=== PATIENT | female | born 1995 | race Caucasian/White ===

== ENCOUNTER 2016-08-02 17:26 | Emergency (ER) | payer OTHER ==
[2016-08-02 17:31] VITALS: BP 123/80; PULSE 89; TEMP 98.5; BMI 25.7
--- NOTE | 2016-08-02 18:23 | PDOC ---
History of Present Illness - General Chief Complaint: Abscess Boil Stated Complaint: ABSCESS BOIL Time Seen by Provider: 08/02/16 17:51 History Source: Patient Exam Limitations: No Limitations - History of Present Illness Initial Comments: 08/02/16 18:18 21-year-old female presents the ED with redness and a bump to her left nipples for the past few days. Denies fever, discharge but states mild discomfort around the earring that she's had for approximately 3 years. Patient denies nipple discharge, history of cysts of the breast, or family history of breast cancer. Mother also denies the above. Patient denies fever, chills or radiation of pain, or previous abscess to other parts of her body. Timing/Duration: other (3 days) Severity: mild Associated Symptoms: reports: denies symptoms Past History - Past Medical History Allergies/Adverse Reactions: Allergies Allergy/AdvReac Type Severity Reaction Status Date / Time No Known Allergies Allergy Verified 08/02/16 17:29 Home Medications: Ambulatory Orders NK [No Known Home Medication] 11/02/13 - Reproductive History LMP Normal: Yes Is Patient Now?: No - Immunization History Immunization Up to Date: Yes - Psycho/Social/Smoking Cessation Hx Anxiety: No Suicidal Ideation: No Smoking History: Never smoked Have you smoked in the past 12 months: No Information on smoking cessation initiated: No Hx Alcohol Use: No Drug/Substance Use Hx: No Substance Use Type: None Patient Lives Alone: No Lives with/in: parents Review of Systems - Review of Systems Able to Perform ROS?: Yes Constitutional: No: Symptoms Reported Musculoskeletal: No: Symptoms Reported Integumentary: Yes: Erythema, Lumps Neurological: No: Symptoms reported *Physical Exam - Vital Signs Last Vital Signs Temp Pulse Resp BP Pulse Ox 98.5 F 89 18 123/80 98 08/02/16 17:29 08/02/16 17:29 08/02/16 17:29 08/02/16 17:29 08/02/16 17:29 - Physical Exam General Appearance: Yes: Nourished, Appropriately Dressed. No: Apparent Distress Integumentary: positive: Erythema (noted semi-firm to by 2.5 cm mass abovethe nipple extending from 12 oclock to 3 oclock. noted mild increased warmth to area.), Other (Earring removed and noted indentation with irritation from the ball of the earring. Able to express minimal to none purulent drainage from the pierced site.) Neurologic: positive: Motor Strength 5/5 Medical Decision Making - Medical Decision Making 08/02/16 18:22 Patient with noted abscess to the left breast secondary to poor fitting nipple earring. Earring was removed and patient be discharged home with antibiotics including recommendations to apply hot soaks and follow-up with her PCP in 5-7 days. *DC/Admit/Observation/Transfer Diagnosis at time of Disposition: Breast abscess - Discharge Dispostion Disposition: HOME Condition at time of disposition: Good - Referrals Referrals: Lisa Sapp MD [Primary Care Provider] - - Patient Instructions Printed Discharge Instructions: DI for Skin Abscess Additional Instructions: Please apply hot soaks to the affected area 4 times a day for at least 15 minutes of constant heat. Please take antibiotics as prescribed until completed. Please follow-up with your PCP in 5-7 days for evaluation or return here sooner if area worsened.
== END 2016-08-02 18:42 | disposition home or self-care (01) ==
LOC: JERFT 17:26
DX: N61.1 Abscess of the breast and nipple (principal); M79.5 Residual foreign body in soft tissue; W45.8XXA Other foreign body or object entering through skin, initial encounter; Y93.89 Activity, other specified
CPT/HCPCS: 99281-25

== ENCOUNTER 2018-08-17 18:23 | Emergency (ER) | payer OTHER ==
[2018-08-17 18:41] VITALS: BP 106/66; PULSE 70; TEMP 98.3; BMI 23.9
--- NOTE | 2018-08-17 18:43 | PDOC ---
History of Present Illness - General Chief Complaint: Urinary Problem Stated Complaint: BLADDER PAIN Time Seen by Provider: 08/17/18 18:29 History Source: Patient Exam Limitations: No Limitations - History of Present Illness Travel History: No Initial Comments: 08/17/18 19:11 Its had onset of pain, burning, frequency and conservative urgency yesterday which is progressively worsen. Denies fever, denies nausea vomiting, vaginal drainage or discharge Timing/Duration: reports: getting worse Quality: reports: mild, moderate Abdominal Pain Onset Location: reports: suprapubic Alleviating Factors: improves with: None Past History - Travel Traveled outside of the country in the last 30 days: No Close contact w/someone who was outside of country & ill: No - Past Medical History Allergies/Adverse Reactions: Allergies Allergy/AdvReac Type Severity Reaction Status Date / Time No Known Allergies Allergy Verified 08/02/16 17:29 Home Medications: Ambulatory Orders Amox-Tr/K Cl [Augmentin - 875Mg Tablet] 1 tab PO BID #14 tablet 08/02/16 Phenazopyridine HCl [Pyridium -] 200 mg PO ONCE #10 tablet 08/17/18 Sulfamethoxazole/Trimethoprim [Bactrim *Ds*] 1 each PO BID #14 tablet 08/17/18 COPD: No - Immunization History Immunization Up to Date: Yes - Suicide/Smoking/Psychosocial Hx Smoking History: Never smoked Have you smoked in the past 12 months: No Hx Alcohol Use: No Drug/Substance Use Hx: No Substance Use Type: None Review of Systems - Review of Systems Able to Perform ROS?: Yes Is the patient limited Lithuanian proficient: Yes Constitutional: Yes: Symptoms Reported, See HPI, Malaise. No: Chills, Fever HEENTM: Yes: See HPI. No: Symptoms Reported Respiratory: Yes: Symptoms reported, See HPI. No: Cough ABD/GI: No: Symptoms Reported : Yes: Symptoms Reported, See HPI, Burning, Dysuria, Frequency, Urgency. No: Hematuria Integumentary: Yes: Symptoms Reported All Other Systems: Reviewed and Negative *Physical Exam - Vital Signs Last Vital Signs Temp Pulse Resp BP Pulse Ox 98.3 F 70 15 106/66 98 08/17/18 18:26 08/17/18 18:26 08/17/18 18:26 08/17/18 18:26 05/12/19 18:26 - Physical Exam General Appearance: Yes: Nourished, Appropriately Dressed HEENT: positive: JOSE, Normal ENT Inspection, TMs Normal, Pharynx Normal Neck: positive: Supple Respiratory/Chest: positive: Lungs Clear Gastrointestinal/Abdominal: positive: Soft. negative: Tender Extremity: positive: Normal Capillary Refill, Normal Inspection Integumentary: positive: Dry, Warm, Pale Neurologic: positive: scrum product owner II-XII NML intact, Fully Oriented, Alert, Normal Mood/ Affect Progress Note - Progress Note Progress Note: UTI, will treat with Bactrim and Pyridium *DC/Admit/Observation/Transfer Diagnosis at time of Disposition: UTI (urinary tract infection) Qualifiers: Urinary tract infection type: acute cystitis Hematuria presence: with hematuria Qualified Code(s): N30.01 - Acute cystitis with hematuria - Discharge Dispostion Disposition: HOME Condition at time of disposition: Stable Decision to Admit order: No - Prescriptions Prescriptions: Phenazopyridine HCl [Pyridium -] 200 mg PO ONCE #10 tablet Sulfamethoxazole/Trimethoprim [Bactrim *Ds*] 1 each PO BID #14 tablet - Referrals - Patient Instructions Printed Discharge Instructions: DI for Urinary Tract Infection (UTI) Additional Instructions: Rest, drink lots of fluids: Teas, water, soups Avoid contact with others until fevers and symptoms resolved Lots of handwashing and good hygiene Continue [id number] medications for symptomatic relief Tylenol or Motrin for fever and pain Continue all of antibiotics until completed Followup with private physician in one week for repeat urinalysis/reevaluation Return to emergency department for worsened symptoms, fevers, dehydration - Post Discharge Activity Forms/Work/School Notes: Back to Work
[2018-08-17 18:54] LABS: EPI CELLS 2.4 /HPF (0-5/HPF); PH,URINE 5.5 (5.0-8.0); URINE APPEARANCE CLEAR; URINE BACTERIA 89.2 /hpf (NEGATIVE); URINE BILIRUBIN NEGATIVE (NEGATIVE); URINE CASTS 3 /lpf (0-8); URINE COLOR YELLOW; URINE GLUCOSE (UA) NEGATIVE (NEGATIVE); URINE KETONE NEGATIVE (NEGATIVE); URINE LEUK ESTERASE 2+ (NEGATIVE); URINE NITRITE NEGATIVE (NEGATIVE); URINE PROTEIN NEGATIVE (NEGATIVE); URINE RBC 105 /hpf (0-4); URINE UROBILINOGEN 0.2 mg/dL (0.2-1.0); URINE WBC 55 /hpf (0-5)
[2018-08-17 19:18] LABS: HCG,QUALITATIVE URINE Negative
== END 2018-08-17 19:26 | disposition home or self-care (01) ==
LOC: JERFT 18:23 → JER 18:23 → JERFT 19:26
DX: N30.01 Acute cystitis with hematuria (principal)
CPT/HCPCS: 81003; 84703; 87086; 87186; 99281-25

== ENCOUNTER 2018-08-26 03:31 | Emergency (ER) | payer OTHER ==
--- NOTE | 2018-08-26 04:06 | PDOC ---
History of Present Illness - General Chief Complaint: Pain Stated Complaint: ABD PAIN Time Seen by Provider: 08/26/18 04:05 History Source: Patient - History of Present Illness Initial Comments: 08/26/18 04:50 The patient is a 23 year old female who presents with acute onset of abdominal pain yesterday around 9 a.m. Pain is constant, punching diffuse and most severe in her epigastrium. No associated nausea/vomiting, fevers/chills, symptoms. LMP was two days previous. NKDA Surgical: none reported Social: denies toxic habits PMD: Dr. Senait Etienne Past History - Past Medical History Allergies/Adverse Reactions: Allergies Allergy/AdvReac Type Severity Reaction Status Date / Time No Known Allergies Allergy Verified 08/26/18 04:10 Home Medications: Ambulatory Orders NK [No Known Home Medication] 08/26/18 COPD: No - Immunization History Immunization Up to Date: Yes - Suicide/Smoking/Psychosocial Hx Smoking History: Never smoked Have you smoked in the past 12 months: No Hx Alcohol Use: No Drug/Substance Use Hx: No Substance Use Type: None Review of Systems - Review of Systems Constitutional: No: Chills, Fever HEENTM: No: Blurred Vision, Recent change in vision Respiratory: No: Cough, Shortness of Breath Cardiac (ROS): No: Chest Pain, Lightheadedness, Palpitations, Syncope ABD/GI: Yes: Abdominal cramping. No: Constipated, Diarrhea, Nausea, Vomiting : No: Burning, Dysuria *Physical Exam - Physical Exam Comments: 08/26/18 06:29 Awake, well appearing Abdomen: soft, epigastric TTP w/peritoneal sign (rebound) CV: S1, S2 no M/R/G Respiratory: CLTA B/L no wheeze/crackle Extremity: 2+ DP pulses, no edema Neuro: A&O x3, CN II-XII ED Treatment Course - LABORATORY CBC & Chemistry Diagram: 08/26/18 04:22 08/26/18 04:22 Medical Decision Making - Medical Decision Making 08/26/18 04:59 Leigha Pedroza is a well appearing 23 year old female with acute onset of abdominal pain. VS unremarkable w/peritoneal sign/focal RUQ/epigastric tenderness on belly exam. Frontal diagnosis includes cholecystitis vs. early appendicitis vs. gastritis, also consider cystitis, pyelonephritis, less likely /ectopic . Belly labs, IV hydration, Tylenol for pain control. CTAP. Reassess. 08/26/18 05:11 UA clean Urine negative No leukocytosis CMP pending 08/26/18 06:26 Tranaminitis w/elevated bilirubin more likely cholecystitis/biliary colic > early appy CMP otherwise unremarkable Lipase negative 08/26/18 06:42 Patient reassessed @ bedside, mild symptomatic improvement with analgesia, persistent epigastric/RUQ TTP. CTAP pending 08/26/18 07:07 Patient signed out to Dr. Sher (Resident) and Dr. Cano (Attending) for further management. Patient will likely require GB US given focal RUQ/ epigastric tenderness and further analgesia. *DC/Admit/Observation/Transfer Diagnosis at time of Disposition: Abdominal pain - Discharge Dispostion Condition at time of disposition: Fair - Referrals Referrals: Lisa Sapp MD [Primary Care Provider] - - Patient Instructions - Post Discharge Activity
[2018-08-26 04:09] VITALS: TEMP 98.1; BMI 23.9
[2018-08-26] MEDS ORDERED: SODIUM CHLORIDE 0.9% 500 ML INFUS.BAG IV ONE (04:24)
[2018-08-26] MEDS ORDERED: ACETAMINOPHEN 1000 MG/100 ML VIAL (NON FORMULARY) IVPB ONE (04:25)
[2018-08-26] MEDS ORDERED: ACETAMINOPHEN INJECTION 100 ML IVPB ONE (04:31)
[2018-08-26 04:37] LABS: BASO % 0.2 % (0-2.0); EOS % 2.4 % (0-4.5); HEMATOCRIT 38.4 % (32.4-45.2); HEMOGLOBIN 12.5 GM/dL (10.7-15.3); LYMPH % 11.9 % (8-40); MCH 27.9 pg (25.7-33.7); MCHC 32.6 g/dl (32.0-36.0); MEAN CELL VOLUME 85.4 fl (80-96); MEAN PLT VOLUME 10.1 fl (7.5-11.1); MONO % 7.6 % (3.8-10.2); NEUT % 77.9 % (42.8-82.8); PLATELET COUNT 167 K/MM3 (134-434); WHITE BLOOD COUNT 7.9 K/mm3 (4.0-10.0)
[2018-08-26 04:41] LABS: PH,URINE 6.5 (5.0-8.0); URINE APPEARANCE CLEAR; URINE BILIRUBIN NEGATIVE (NEGATIVE); URINE COLOR YELLOW; URINE GLUCOSE (UA) NEGATIVE (NEGATIVE); URINE KETONE NEGATIVE (NEGATIVE); URINE LEUK ESTERASE NEGATIVE (NEGATIVE); URINE NITRITE NEGATIVE (NEGATIVE); URINE PROTEIN NEGATIVE (NEGATIVE)
[2018-08-26 05:13] LABS: ALBUMIN 4.4 g/dl (3.4-5.0); ALK PHOS 88 U/L (45-117); ANION GAP 7 MMOL/L (8-16); BILIRUBIN,TOTAL 1.3 mg/dL (0.2-1); BLOOD UREA NITROGEN 9 mg/dL (7-18); CALCIUM 8.8 mg/dL (8.5-10.1); CHLORIDE 105 mmol/L (98-107); CO2 25 mmol/L (21-32); CREATININE 0.8 mg/dL (0.55-1.3); GLUCOSE,RANDOM 85 mg/dL (74-106); LIPASE 285 U/L (73-393); POTASSIUM 3.6 mmol/L (3.5-5.1); SGOT/AST 175 U/L (15-37); SGPT/ALT 209 U/L (13-61); SODIUM 137 mmol/L (136-145); TOT PROT 7.4 g/dl (6.4-8.2)
--- NOTE | 2018-08-26 06:40 | PDOC ---
Attending Attestation - Resident Resident Name: Dixie Dumas - ED Attending Attestation I have performed the following: I have examined & evaluated the patient, The case was reviewed & discussed with the resident, I agree w/resident's findings & plan - HPI HPI: 08/26/18 06:38 23-year-old female with right upper quadrant sharp abdominal pain. - Physicial Exam PE: 08/26/18 06:39 agree with residents exam - Medical Decision Making 08/26/18 06:39 23-year-old female with upper abdominal pain CT scan of the abdomen and pelvis is pending Plan to sign out case to day shift for final disposition
--- NOTE | 2018-08-26 07:20 | PDOC ---
*Physical Exam - Vital Signs Last Vital Signs Temp Pulse Resp BP Pulse Ox 98.1 F 89 20 100/72 99 08/26/18 03:31 08/26/18 03:31 08/26/18 03:31 08/26/18 03:31 08/26/18 03:31 - Physical Exam General Appearance: Yes: Appropriately Dressed. No: Apparent Distress HEENT: positive: Normal Voice Respiratory/Chest: negative: Respiratory Distress, Accessory Muscle Use Gastrointestinal/Abdominal: positive: Tender (Epigastric Region without rebound or guarding. ), Flat, Soft. negative: Hernia, Mass Integumentary: positive: Normal Color Neurologic: positive: Fully Oriented, Alert, Normal Mood/Affect Vital Signs - Vital Signs #1 Blood Pressure: 110/75 MAP: 86 BP Location: Left Arm Blood Pressure Position: Sitting Pulse Rate: 78 Respiratory Rate: 16 O2 Sat by Pulse Oximetry (%): 97 Oxygen Delivery Method: Room Air ED Treatment Course - LABORATORY CBC & Chemistry Diagram: 08/26/18 04:22 08/26/18 04:22 - ADDITIONAL ORDERS Additional order review: Laboratory Results 08/26/18 08/26/18 08/26/18 04:22 04:22 04:22 Sodium 137 Potassium 3.6 Chloride 105 Carbon Dioxide 25 Anion Gap 7 L BUN 9 Creatinine 0.8 Est GFR (CKD-EPI)AfAm 118.76 Est GFR (CKD-EPI)NonAf 102.47 Random Glucose 85 Calcium 8.8 Total Bilirubin 1.3 H AST 175 H ALT 209 H Alkaline Phosphatase 88 Total Protein 7.4 Albumin 4.4 Lipase 285 Urine Color Yellow Urine Appearance Clear Urine pH 6.5 Ur Specific [place] 1.010 Urine Protein Negative Urine Glucose (UA) Negative Urine Ketones Negative Urine Blood Negative Urine Nitrite Negative Urine Bilirubin Negative Urine Urobilinogen 1.0 Ur Leukocyte Esterase Negative Urine HCG, Qual Blood Type A POSITIVE Antibody Screen Negative 08/26/18 04:21 Sodium Potassium Chloride Carbon Dioxide Anion Gap BUN Creatinine Est GFR (CKD-EPI)AfAm Est GFR (CKD-EPI)NonAf Random Glucose Calcium Total Bilirubin AST ALT Alkaline Phosphatase Total Protein Albumin Lipase Urine Color Urine Appearance Urine pH Ur Specific [place] Urine Protein Urine Glucose (UA) Urine Ketones Urine Blood Urine Nitrite Urine Bilirubin Urine Urobilinogen Ur Leukocyte Esterase Urine HCG, Qual Negative Blood Type Antibody Screen 08/26/18 04:22 RBC 4.50 MCV 85.4 MCHC 32.6 RDW 13.0 MPV 10.1 Neutrophils % 77.9 Lymphocytes % 11.9 Monocytes % 7.6 Eosinophils % 2.4 Basophils % 0.2 - RADIOLOGY Radiograph Interpretation: CT Abdomen and Pelvis w/ Contrast: THIS IS A PRELIMINARY REPORT FROM [facility] DATE OF SERVICE: 2018-08-26 06:39:52 IMAGES: [id number] EXAM: CT ABDOMEN AND PELVIS WITH CONTRAST No bowel obstruction, colitis, free fluid or free air. Normal appendix. Unremarkable pancreas, kidneys and gallbladder. 1.3 cm dominant follicle left ovary. One or more of the following dose reduction techniques were used: automated exposure control, adjustment of the mA and/or kV according to patient size, use of iterative reconstructive technique. THIS DOCUMENT HAS BEEN ELECTRONICALLY SIGNED Natalia Alcaraz M.D. 08/26/2018 07:02 EST - Medications Given in the ED: ED Medications Discontinued Medications Generic Name Dose Route Start Last Admin Trade Name Freq PRN Reason Stop Dose Admin Acetaminophen 1,000 mg 08/26/18 04:25 08/26/18 04:35 Ofirmev Injection - IVPB 08/26/18 04:26 1,000 mg ONCE ONE Administration Sodium Chloride 1,000 ml 08/26/18 04:24 08/26/18 04:25 Normal Saline - IV 08/26/18 04:25 1,000 ml ONCE ONE Administration Medical Decision Making - Medical Decision Making 08/26/18 07:00 Received sign out from resident Dr. Orellana. In short, pt is a previously healthy 23 y/o female presenting with RUQ vs epigastric tenderness since yesterday morning. Started after eating breakfast. Constant pain that persisted throughout the day. Became worse after laying down to sleep at approx. 3am. Of note, was evaluated at this department last week and diagnosed with a UTI. Pt reports completing the prescribed antibiotic course. Also of note , the pt reports taking approx. 2-4 *DC/Admit/Observation/Transfer Diagnosis at time of Disposition: Abdominal pain Qualifiers: Abdominal location: epigastric Qualified Code(s): R10.13 - Epigastric pain - Discharge Dispostion Disposition: HOME Condition at time of disposition: Good Decision to Admit order: No - Prescriptions Prescriptions: Omeprazole 20 mg PO DAILY 14 Days #14 tablet. Ranitidine [Zantac -] 150 mg PO BID PRN #20 tablet PRN Reason: Stomach Pain - Referrals Referrals: Lisa Sapp MD [Primary Care Provider] - Ander Guerra MD [Staff Physician] - - Patient Instructions Printed Discharge Instructions: DI for Gastritis Additional Instructions: You were seen today for upper abdominal pain. Your CT scan and ultrasound were normal. Your blood work showed a slight elevation in your liver enzymes. The reason for this is not clear but is not likely to be an emergency. Your pain is likely gastritis from taking Ibuprofen 2-4 times a day. You should stop taking it as frequently. Try taking over the counter Tylenol (Acetaminophen) for your headaches. I have sent two prescriptions to your pharmacy. Take as directed on the package. Be aware, these medications may be cheaper over the counter. Check with the pharmacist. You should follow up with a accelerator technician (stomach doctor). I have placed a referral for you to see Dr. Guerra. You will need to call to make an appointment. The number is included in this packet. A copy of todays results are attached to this packet. Take it to the appointment so your doctor can review them. You can also follow up with your primary care provider. Go to the nearest emergency department if your condition worsens or you feel like you need additional emergency evaluation. Print Language: MAORI - Post Discharge Activity Forms/Work/School Notes: Back to Work
[2018-08-26] MEDS ORDERED: IBUPROFEN 600 MG TABLET (FP) PO ONE (08:33)
[2018-08-26] MEDS ORDERED: MAG HYDROX/AL HYDROX/SIMETH 30 ML UNIT-DOSE CUP PO ONE (08:39)
[2018-08-26] MEDS ORDERED: FAMOTIDINE 20 MG/50 ML IVPB 20 MG/50 ML MG IVPB ONE ×2 (08:39→08:47)
[2018-08-26] MEDS ORDERED: MAG HYDROX/AL HYDROX/SIMETH 30 ML UNIT-DOSE CUP ONE (08:47)
[2018-08-26] MEDS ORDERED: LIDOCAINE VISCOUS 2% ORAL/TOP 100 ML BOTTLE MM ONE (11:54)
[2018-08-26] MEDS ORDERED: LIDOCAINE VISCOUS 2% ORAL/TOP 20 ML UNIT-DOSE CUP ONE (12:10)
[2018-08-26 12:46] VITALS: BP 110/72; PULSE 70
== END 2018-08-26 12:46 | disposition home or self-care (01) ==
LOC: JER 03:31
PROC: 3E033GC Introduction of Other Therapeutic Substance into Peripheral Vein, Percutaneous Approach (ICD-10-PCS; principal; 2018-08-26)
DX: R10.13 Epigastric pain (principal)
CPT/HCPCS: 36415; 74177-TC; 76705-TC; 80053; 80307; 81003; 83690; 84703; 85025; 86850; 86900; 86901; 87086; 96365; 99282-25; J0131

== ENCOUNTER 2019-12-27 10:40 | Emergency (ER) | payer OTHER ==
[2019-12-27 10:53] VITALS: BMI 28.3
--- OUTSIDE RECORDS SUMMARY | 2019-12-27 10:57 | XMS ---
:1995 Author Organization [facility] Support Name Relationship Address Phone [facility] Unavailable [address] [phone] [place] [address] [facility] Unavailable [address] [place] [address] LEXI CARLSON MOTHER [address] [place] [address] DIMA CARLSON Mother [address] [place] [address] Re-disclosure Warning The records that you are about to access may contain information from federally- assisted alcohol or drug abuse programs. If such information is present, then the following federally mandated warning applies: This information has been disclosed to you from records protected by federal confidentiality rules (42 CFR part 2). The federal rules prohibit you from making any further disclosure of this information unless further disclosure is expressly permitted by the written consent of the person to whom it pertains or as otherwise permitted by 42 CFR part 2. A general authorization for the release of medical or other information is NOT sufficient for this purpose. The Federal rules restrict any use of the information to criminally investigate or prosecute any alcohol or drug abuse patient.The records that you are about to access may contain highly sensitive health information, the redisclosure of which is protected by Article 27-F of the [facility] Public Health law. If you continue you may haveaccess to information: Regarding HIV / AIDS; Provided by facilities licensed or operated by the [facility] Office of Mental Health; or Provided by the [facility] Office for People With Developmental Disabilities. If such information is present, then the following [facility] mandated warning applies: This information has been disclosed to you from confidential records which are protected by state law. State law prohibits you from making any further disclosure of this information without the specific written consent of the person to whom it pertains, or as otherwise permitted by law. Any unauthorized further disclosure in violation of state law may result in a fine or shelter sentence or both. A general authorization for the release of medical or other information is NOT sufficient authorization for further disclosure. Allergies and Adverse Reactions Type Description Substance Reaction Status Data Source(s ) No Known No Known Allergies No Known eCW3 ( [place] [facility]) No Known No Known Allergies No Known eCW3 ( [place] [facility]) No Known No Known Allergies No Known eCW3 ( [place] [facility] Allergies [facility]) No Known No Known Allergies No Known eCW3 ( [place] [facility] Allergies [facility]) No Known No Known Allergies No Known eCW3 ( [place] [facility] Allergies [facility]) No Known No Known Allergies No known eCW3 ( [place] Allergies allergies [facility] ([facility]) Encounters Encounter Providers Location Date Indications Data Source(s ) Outpatient [facility] 01/29/2019 eCW3 ([facility] 12:00:00 AM Health Care) EDT - 01/29/2019 12:00:00 AM EDT Outpatient [facility] 12/18/2018 eCW3 ([facility] 12:00:00 AM Health Care) EDT - 12/18/2018 12:00:00 AM EDT Outpatient [facility] 12/12/2018 eCW3 ([facility] 12:00:00 AM Health Care) EDT - 12/12/2018 12:00:00 AM EDT Outpatient [facility] 09/17/2018 eCW3 ([facility] 12:00:00 AM Health Care) EDT - 09/17/2018 12:00:00 AM EDT Outpatient [facility] 08/27/2018 eCW3 ([facility] 12:00:00 AM Health Care) EDT - 08/27/2018 12:00:00 AM EDT Outpatient [facility] 05/29/2018 eCW3 ([facility] 12:00:00 AM Health Care) EST - 05/29/2018 12:00:00 AM EST Immunizations Vaccine Date Status Description Data Source(s) varicella 11/17/2015 completed eCW3 [facility] Hep A, adult 11/17/2015 completed eCW3 ([place] 10:02:00 AM [facility]) HPV, quadrivalent 08/18/2015 completed eCW3 ([place] 08:48:00 AM [facility]) HPV, quadrivalent 10/21/2014 completed eCW3 ([facility] [place] 01:54:00 PM [facility]) Hep A, ped/adol, 2 dose completed eCW3 ([facility]) HPV, quadrivalent completed [facility]) meningococcal MCV4P completed eCW3 ([facility]) varicella completed eCW3 ([facility]) Medications Medication Brand Start Product Dose Route Administrative Pharmacy at Indications Reaction Description Data Name Date Form Instructions Instructions Source(s) medroxyprog DEPO-P 03/04/ active DEPO-NV OVERA eCW3 esterone ROVERA 2020 150 mg/ml ([place] [facility] acetate 150 150 12:00: [place] MG/ML mg/ml 00 AM Health Injectable EST Care) Suspension [Depo-Prove ra] DEPO-GREEN PRIZE PACKER A 150 mg/ml medroxyprog DEPO-P 03/04/ active DEPO-NV OVERA eCW3 esterone ROVERA 2020 150 mg/ml ([place] acetate 150 150 12:00: [place] MG/ML mg/ml 00 AM Health Injectable EST Care) Suspension [Depo-Prove ra] DEPO-GREEN PRIZE PACKER A 150 mg/ml medroxyprog DEPO-P 03/04/ active DEPO-NV OVERA eCW3 esterone ROVERA 2020 150 mg/ml ([place] acetate 150 150 12:00: [place] MG/ML mg/ml 00 AM Health Injectable EST Care) Suspension [Depo-Prove ra] DEPO-GREEN PRIZE PACKER A 150 mg/ml medroxyprog DEPO-P 03/04/ active DEPO-NV OVERA eCW3 esterone ROVERA 2020 150 mg/ml ([place] acetate 150 150 12:00: [place] MG/ML mg/ml 00 AM Health Injectable EST Care) Suspension [Depo-Prove ra] DEPO-GREEN PRIZE PACKER A 150 mg/ml medroxyprog DEPO-P 03/04/ active DEPO-NV OVERA eCW3 esterone ROVERA 2020 150 mg/ml ([place] acetate 150 150 12:00: [place] MG/ML mg/ml 00 AM Health [facility] EST Care) Suspension [Depo-Prove ra] DEPO-GREEN PRIZE PACKER A 150 mg/ml Amoxicillin Amoxic .0 active Amoxici llin eCW3 500 MG Oral illin 2018 {caps 500 MG ([facility] Capsule 500 MG 12:00: ule} [place] 00 AM Health EST Care) Fluticasone Flutic .0 active Flutica sone eCW3 Propionate asone 2018 {spra Propionate ( [place] 50 MCG/ACT Propio 12:00: y_in_ 50 MCG/AC T [place] yuliya 00 AM each_ Health 50 EST nostr Care) MCG/AC il} T Amoxicillin Amoxic .0 active Amoxici llin eCW3 500 MG Oral illin 2018 {caps 500 MG ([place] [facility] Capsule 500 MG 12:00: ule} [place] 00 AM [facility] EST Care) Amoxicillin Amoxic .0 active Amoxici llin eCW3 500 MG Oral illin 2018 {caps 500 MG ([facility] Capsule 500 MG 12:00: ule} [place] 00 AM Health EST Care) Fluticasone Flutic .0 active Flutica sone eCW3 Propionate asone 2018 {spra Propionate ( [place] 50 MCG/ACT Propio 12:00: y_in_ 50 MCG/AC T [place] 00 AM each_ [place] [id number] EST nostr Care) MCG/AC il} T Amoxicillin Amoxic .0 active Amoxici llin eCW3 500 MG Oral illin 2018 {caps 500 MG ([facility] Capsule 500 MG 12:00: ule} [place] 00 AM Health EST Care) Fluticasone Flutic .0 active Flutica sone eCW3 Propionate asone 2018 {spra Propionate ( [place] 50 MCG/ACT Propio 12:00: y_in_ 50 MCG/AC T [place] 00 AM each_ Health EST nostr Care) MCG/AC il} T Fluticasone Flutic 1.0 active Flutica sone eCW3 Propionate asone 2018 {spra Propionate ( [place] 50 MCG/ACT Propio 12:00: y_in_ 50 MCG/AC T [place] 00 AM each_ Health 50 EST nostr Care) MCG/AC il} T Amoxicillin Amoxic .0 active Amoxici llin eCW3 500 MG Oral illin 2018 {caps 500 MG ([facility] Capsule 500 MG 12:00: ule} [place] 00 AM Health EST Care) Fluticasone Flutic .0 active Flutica sone eCW3 Propionate asone 2018 {spra Propionate ( [place] 50 MCG/ACT Propio 12:00: y_in_ 50 MCG/AC T [place] 00 AM each_ Health 50 EST nostr Care) MCG/AC il} T Sumatriptan Sumatr .0 active Sumatri ptan eCW3 50 MG Oral iptan 2018 {tabl Succinate 50 ([place] Tablet Succin 12:00: et_as mg [place] Sumatriptan ate 50 00 AM _need Heal th Succinate mg EDT ed} Care) 50 mg Sumatriptan Sumatr .0 active Sumatri ptan eCW3 50 MG Oral iptan 2018 {tabl Succinate 50 ([place] Tablet Succin 12:00: et_as mg [place] Sumatriptan ate 50 00 AM _need Heal th Succinate mg EDT ed} Care) 50 mg Sumatriptan Sumatr .0 active Sumatri ptan eCW3 50 MG Oral iptan 2018 {tabl Succinate 50 ([place] Tablet Succin 12:00: et_as mg [place] Sumatriptan ate 50 00 AM _need Heal th Succinate mg EDT ed} Care) 50 mg Sumatriptan Sumatr .0 active Sumatri ptan eCW3 50 MG Oral iptan 2018 {tabl Succinate 50 ([place] Tablet Succin 12:00: et_as mg [place] Sumatriptan ate 50 00 AM _need Heal th Succinate mg EDT ed} Care) 50 mg Sumatriptan Sumatr .0 active Sumatri ptan eCW3 50 MG Oral iptan 2018 {tabl Succinate 50 ([place] Tablet Succin 12:00: et_as mg [place] Sumatriptan ate 50 00 AM _need Heal th Succinate mg EDT ed} Care) 50 mg Ibuprofen Ibupro .0 suspend Ibuprofe n eCW3 400 MG Oral fen 2017 {tabl ed 400 MG ([place] Tablet 400 MG 12:00: et} [place] 00 AM Health EDT Care) medroxyprog Depo-P 06/29/ suspend Depo-P rovera eCW3 esterone rovera 2017 ed 150 MG/ML ([place] acetate 150 150 12:00: [place] MG/ML MG/ML 00 AM Health Injectable EDT Care) Suspension [Depo-Prove ra] Depo-Staffing Coordinator a 150 MG/ML hydrocortis Anusol 1.0 suspend Anusol-H C 25 eCW3 one acetate -HC 25 {supp ed MG ([facility] 25 MG MG manuel [place] [facility]} Health Suppository Care) [Anusol HC] Anusol-HC 25 MG DEPO-GREEN PRIZE PACKER UNK active DEPO-GREEN PRIZE PACKER A eCW3 A 150 MG/ML 150 MG/ML ([facility]) DEPO-GREEN PRIZE PACKER UNK active DEPO-GREEN PRIZE PACKER A eCW3 A 150 MG/ML 150 MG/ML ([facility]) DEPO-GREEN PRIZE PACKER UNK active DEPO-GREEN PRIZE PACKER A eCW3 A 150 MG/ML 150 MG/ML ([facility]) DEPO-GREEN PRIZE PACKER UNK active DEPO-GREEN PRIZE PACKER A eCW3 A 150 MG/ML 150 MG/ML ([facility]) DEPO-GREEN PRIZE PACKER UNK active DEPO-GREEN PRIZE PACKER A eCW3 A 150 MG/ML 150 MG/ML ([facility]) DEPO-GREEN PRIZE PACKER UNK active DEPO-GREEN PRIZE PACKER A eCW3 A 150 MG/ML 150 MG/ML ([facility]) DEPO-GREEN PRIZE PACKER UNK active DEPO-GREEN PRIZE PACKER A eCW3 A 150 MG/ML 150 MG/ML ([facility]) DEPO-GREEN PRIZE PACKER UNK suspend DEPO-PROVE RA eCW3 A 150 MG/ML ed 150 MG/ML ([facility]) DEPO-GREEN PRIZE PACKER UNK active DEPO-GREEN PRIZE PACKER A eCW3 A 150 MG/ML 150 MG/ML ([facility]) Insurance Providers Payer name Policy type Policy ID Covered Covered green party's Policy P edith / Coverage green party ID relationship to Rich Inf ormation type rich [facility], [id number] SP [id number] LLC/ SELF PAY SP INSURANCE [facility] MEDICAID [id number] SP [id number] COMM PLAN Problems, Conditions, and Diagnoses Code Display Name Description Problem Effective Data Type Dates Source(s) G43.009 Migraine without Migraine without Problem 02/13/2019 eC W3 ([place] aura and without aura and without 12:00:00 AM [facility] status migrainosus, status migrainosus, EST Care) not intractable not intractable K29.70 Gastritis, presence Gastritis, presence Problem 019 eCW3 ([place] of bleeding of bleeding 12:00:00 AM [facility] unspecified, unspecified, EDT Care) unspecified unspecified chronicity, chronicity, unspecified unspecified gastritis type gastritis type G43.909 Migraine without Migraine without Problem 08/27/2018 eC W3 ([place] status migrainosus, status migrainosus, 12:00:0 0 AM [facility] not intractable, not intractable, EDT Ca re) unspecified migraine unspecified migraine type type E04.9 Thyroid enlarged Thyroid enlarged Problem 05/29/2018 eC W3 ([place] 12:00:00 AM [facility] EST Care) E04.9 Thyroid enlarged Thyroid enlarged Problem 05/29/2018 eC W3 ([place] 12:00:00 AM [facility] EST Care) N92.1 Menometrorrhagia Menometrorrhagia Problem 12/19/2016 eC W3 ([place] 12:00:00 AM [facility] EDT Care) O03.4 Incomplete Incomplete Problem 017 eCW3 ([place] 12:00:00 AM [facility] EDT Care) K64.9 Bleeding hemorrhoid Bleeding hemorrhoid Problem 017 eCW3 ([place] 12:00:00 AM [facility] EDT Care) Z30.40 Depo-Provera Depo-Provera Problem 08/31/2016 eCW3 ([facility] contraceptive status contraceptive status 12:00 :00 AM [facility] EDT Care) N61.0 Infection of breast, Infection of breast, Problem 08/07 eCW3 ([place] left left 12:00:00 AM [facility] EDT Care) Z11.3 Screening for STD Screening for STD Problem 06/26/2016 eCW3 ([place] (sexually (sexually 12:00:00 AM [facility] transmitted disease) transmitted disease) EDT Care) M25.562 Patellofemoral Patellofemoral Problem 11/23/2015 eCW3 ( [place] arthralgia of left arthralgia of left 12:00:00 AM [facility] knee knee EDT Care) M25.562 Left knee pain Left knee pain Problem 08/18/2015 eCW3 ( [place] 12:00:00 AM [facility] EDT Care) Surgeries/Procedures Procedure Description Date Indications Data Source(s) INJ DEPOPROVERA 150 mg 12/12/2018 eCW3 ([facility] 12:00:00 AM [facility]) Social History Code Duration Value Status Description Data Source(s ) Smoking Unknown if ever completed Unknown if ever eCW3 ([facility] smoked smoked Health Care) Smoking Unknown if ever completed Unknown if ever eCW3 ([facility] smoked smoked Health Care) Smoking Unknown if ever completed Unknown if ever eCW3 ([facility] smoked smoked Health Care) Smoking Unknown if ever completed Unknown if ever eCW3 ([facility] smoked smoked Health Care) Smoking Unknown if ever completed Unknown if ever eCW3 ([facility] smoked smoked Health Care) Smoking Unknown if ever completed Unknown if ever eCW3 ([facility] smoked smoked Health Care) Vital Signs ID Date Data Source UNK Name Value Range Interpretation Code Description Data Source(s) Diastolic blood 65 mm[Hg] 65 mm[Hg] eCW3 ([facility]) Systolic blood 106 mm[Hg] 106 mm[Hg] eCW3 ([facility]) Body temperature 98.8 [degF] 98.8 [degF] eCW3 ( [facility]) Heart rate 20 /min 20 /min eCW3 ([facility]) Body mass index 23.15 kg/m2 23.15 kg/m2 eCW3 ([place] [facility] (BMI) [Ratio] [facility]) Body weight 137 [lb_av] 137 [lb_av] eCW3 ([facility]) Body height 64.5 [in_i] 64.5 [in_i] eCW3 ([facility]) Diastolic blood 73 mm[Hg] 73 mm[Hg] eCW3 ([facility]) Systolic blood 114 mm[Hg] 114 mm[Hg] eCW3 ([facility]) Body temperature 98.5 [degF] 98.5 [degF] eCW3 ( [facility]) Heart rate 20 /min 20 /min eCW3 ([facility]) Body mass index 24.72 kg/m2 24.72 kg/m2 eCW3 ([facility] (BMI) [Ratio] [facility]) Body weight 133 [lb_av] 133 [lb_av] eCW3 ([facility]) Body height 61.50 [in_i] 61.50 [in_i] eCW3 ([facility]) Diastolic blood 64 mm[Hg] 64 mm[Hg] eCW3 ([facility]) Systolic blood 103 mm[Hg] 103 mm[Hg] eCW3 ([facility]) Body temperature 99.0 [degF] 99.0 [degF] eCW3 ( [facility]) Heart rate 20 /min 20 /min eCW3 ([facility]) Body mass index 25.09 kg/m2 25.09 kg/m2 eCW3 ([facility] (BMI) [Ratio] [facility]) Body weight 135 [lb_av] 135 [lb_av] eCW3 ([facility]) Body height 61.50 [in_i] 61.50 [in_i] eCW3 ([facility]) Diastolic blood 57 mm[Hg] 57 mm[Hg] eCW3 ([facility]) Systolic blood 92 mm[Hg] 92 mm[Hg] eCW3 ([facility]) Body temperature 98.6 [degF] 98.6 [degF] eCW3 ( [facility]) Heart rate 20 /min 20 /min eCW3 ([facility]) Body mass index 25.28 kg/m2 25.28 kg/m2 eCW3 ([facility] (BMI) [Ratio] [facility]) Body weight 136 [lb_av] 136 [lb_av] eCW3 ([facility]) Body height 61.5 [in_i] 61.5 [in_i] eCW3 ([facility]) Diastolic blood 57 mm[Hg] 57 mm[Hg] eCW3 ([facility]) Systolic blood 91 mm[Hg] 91 mm[Hg] eCW3 ([facility]) Body temperature 98.0 [degF] 98.0 [degF] eCW3 ( [facility]) Heart rate 20 /min 20 /min eCW3 ([facility]) Body mass index 25.46 kg/m2 25.46 kg/m2 eCW3 ([facility] (BMI) [Ratio] [facility]) Body weight 137 [lb_av] 137 [lb_av] eCW3 ([facility]) Body height 61.5 [in_i] 61.5 [in_i] eCW3 ([facility]) Diastolic blood 63 mm[Hg] 63 mm[Hg] eCW3 ([facility]) Systolic blood 96 mm[Hg] 96 mm[Hg] eCW3 ([facility]) Body temperature 98.7 [degF] 98.7 [degF] eCW3 ( [facility]) Heart rate 18 /min 18 /min eCW3 ([facility]) Body mass index 24.16 kg/m2 24.16 kg/m2 eCW3 ([facility] (BMI) [Ratio] [facility]) Body weight 130.0 130.0 [lb_av] [facility]) Body height 61.5 [in_i] 61.5 [in_i] eCW3 ([facility]) Patient Treatment Plan of Care Planned Activity Planned Date Details Description Data Source (s) medroxyprogesterone acetate 06/10/2019 eCW3 ([place] 150 MG/ML Injectable 12:00:00 AM [facility]) Suspension [Depo-Provera] medroxyprogesterone acetate 06/10/2019 eCW3 ([place] 150 MG/ML Injectable 12:00:00 AM [facility]) Suspension [Depo-Provera] DEPO-PROVERA 150 MG/ML eCW3 ([facility]) DEPO-PROVERA 150 MG/ML eCW3 ([facility]) DEPO-PROVERA 150 MG/ML eCW3 ([facility]) DEPO-PROVERA 150 MG/ML eCW3 ([facility]) DEPO-PROVERA 150 MG/ML eCW3 ([facility])
[2019-12-27 11:56] LABS: BASO % 0.6 % (0-2.0); EOS % 2.7 % (0-4.5); HEMATOCRIT 40.9 % (32.4-45.2); HEMOGLOBIN 13.5 GM/dL (10.7-15.3); LYMPH % 33.6 % (8-40); MCH 28.1 pg (25.7-33.7); MEAN CELL VOLUME 85.3 fl (80-96); MEAN PLT VOLUME 9.1 fl (7.5-11.1); MONO % 9.9 % (3.8-10.2); NEUT % 53.2 % (42.8-82.8); PLATELET COUNT 235 K/MM3 (134-434); RDW 13.2 % (11.6-15.6); WHITE BLOOD COUNT 5.3 K/mm3 (4.0-10.0)
[2019-12-27 12:04] LABS: PH,URINE 7.5 (5.0-8.0); URINE APPEARANCE CLEAR; URINE BILIRUBIN NEGATIVE (NEGATIVE); URINE COLOR YELLOW; URINE GLUCOSE (UA) NEGATIVE (NEGATIVE); URINE KETONE NEGATIVE (NEGATIVE); URINE LEUK ESTERASE NEGATIVE (NEGATIVE); URINE NITRITE NEGATIVE (NEGATIVE); URINE PROTEIN NEGATIVE (NEGATIVE)
--- NOTE | 2019-12-27 12:16 | PDOC ---
History of Present Illness - General Chief Complaint: Pain Stated Complaint: BACK AND STOMACH PAIN Time Seen by Provider: 12/27/19 11:11 History Source: Patient Exam Limitations: No Limitations - History of Present Illness Initial Comments: 12/27/19 12:11 24-year-old female history of headaches, takes Excedrin daily with minimal to no help, currently planning on scheduling neurology follow-up appointment. Reports normal brain MRI and head CT 2 years ago. Presents to the ED complaining of midepigastric pain radiating to the mid upper back intermittently for 2 weeks. Describes pain as soreness, now worsening over the past 2 days. Denies nausea, vomiting, fever, chills, diarrhea, chest pain, shortness of breath, recent travel, leg pain, leg swelling, palpitations, dizziness, urinary complaints or any other symptoms. Drinks alcohol on occasion, denies illicit substance use. Did not take any pain medication this morning. ROS: as above PE: GENERAL: well-appearing, NAD HEAD: NCAT EYES: Pupils equal, round and reactive to light, sclera anicteric, conjunctiva clear ENT: pharynx: no erythema, no exudate, uvula midline NECK: supple CHEST: nontender RESP: clear, no w/r/r CARDIO: rrr, no m/g/r ABD: +BS, soft, nontender, non distended BACK: no midline spinal ttp, reproducible right mid upper back tenderness to palpation, no CVAT EXTREMITIES: Normal range of motion, no edema NEUROLOGICAL: Normal speech, normal gait SKIN: Warm, Dry 12/27/19 14:12 Is this a multiple visit Asthma Patient?: No Past History - Medical History Allergies/Adverse Reactions: Allergies Allergy/AdvReac Type Severity Reaction Status Date / Time No Known Allergies Allergy Verified 12/27/19 11:16 Home Medications: Ambulatory Orders Cyclobenzaprine HCl 10 mg PO HS #12 tablet 12/27/19 COPD: No - Reproductive History Is Patient Now?: No - Immunization History Td Vaccination: Yes TDAP Vaccination: Yes Immunization Up to Date: Yes - Psycho-Social/Smoking History Smoking History: Never smoked Have you smoked in the past 12 months: No - Substance Abuse Hx (Audit-C & DAST Scrn) How often the patient has a drink containing alcohol: Monthly or less Number of drinks the patient has on a typical day: 1 or 2 Score: In Men: 4 or > Positive; In Women: 3 or > Positive: 1 Screen Result (Pos requires Nsg. Audit-10AR): Negative In the last yr the pt used illegal drug/Rx for NonMed reason: No Score: Yes response is considered Positive: 0 Screen Result (Positive result requires Nsg. DAST-10): Negative *Physical Exam - Vital Signs Last Vital Signs Temp Pulse Resp BP Pulse Ox 98.4 F 80 16 113/80 100 12/27/19 10:46 12/27/19 10:46 12/27/19 10:46 12/27/19 10:46 12/27/19 10:46 ED Treatment Course - LABORATORY CBC & Chemistry Diagram: 12/27/19 11:30 12/27/19 11:30 - ADDITIONAL ORDERS Additional order review: Laboratory Results 12/27/19 12/27/19 11:30 11:30 Urine Color Yellow Urine Appearance Clear Urine pH 7.5 Ur Specific [place] 1.022 Urine Protein Negative Urine Glucose (UA) Negative Urine Ketones Negative Urine Blood Negative Urine Nitrite Negative Urine Bilirubin Negative Urine Urobilinogen 1.0 Ur Leukocyte Esterase Negative Urine HCG, Qual Negative 12/27/19 11:30 RBC 4.80 MCV 85.3 MCHC 33.0 RDW 13.2 MPV 9.1 Neutrophils % 53.2 D Lymphocytes % 33.6 D Monocytes % 9.9 Eosinophils % 2.7 Basophils % 0.6 - RADIOLOGY Radiology Studies Ordered: Category Date Time Status CHEST PA & LAT [RAD] Stat Radiology 12/27/19 11:29 Ordered ABDOMEN US -LIMITED [US] Stat Ultrasound 12/27/19 11:29 Ordered Medical Decision Making - Medical Decision Making 12/27/19 12:15 24-year-old female history of headaches, takes Excedrin daily with minimal to no help, currently planning on scheduling neurology follow-up appointment. Reports normal brain MRI and head CT 2 years ago. Presents to the ED complaini ng of midepigastric pain radiating to the mid upper back intermittently for 2 weeks. Describes pain as soreness, now worsening over the past 2 days. Denies nausea, vomiting, fever, chills, diarrhea, chest pain, shortness of breath, recent travel, leg pain, leg swelling, palpitations, dizziness, urinary complaints or any other symptoms. Drinks alcohol on occasion, denies illicit substance use. Did not take any pain medication this morning. Differential diagnosis includes pancreatitis, acute cholecystitis, gastritis Abdominal exam benign Will not give analgesia or antiemetic at this time given patient denies pain or nausea Labs including lipase and UA test Abdominal ultrasound Reassess 12/27/19 14:11 Abdominal ultrasound unremarkable cxr: Unremarkable on my wet read ecg: HR 74, nsr, no st or tw changes Reviewed and discussed lab results including UA and negative test with patient Abdominal exam benign Toradol 30 mg IM for reproducible right mid back pain -minimal improvement Prescription for cyclobenzaprine 10 mg 1 tablet at night Advised patient to follow-up a PCP Return precautions discussed 12/27/19 14:12 12/27/19 14:17 Discharge - Discharge Information Problems reviewed: Yes Clinical Impression/Diagnosis: Abdominal pain Qualifiers: Abdominal location: epigastric Qualified Code(s): R10.13 - Epigastric pain Condition: Stable Disposition: HOME - Admission No - Additional Discharge Information Prescriptions: Cyclobenzaprine HCl 10 mg PO HS #12 tablet - Follow up/Referral Referrals: [facility] [Provider Group] - Patient Discharge Instructions Additional Instructions: Alternate between acetaminophen and ibuprofen every 6 hours as needed for pain Take cyclobenzaprine 10 mg 1 tablet at night if needed Follow-up with a primary care provider within 1 week If you develop fever, shortness of breath, palpitations, dizziness, chest pain or any concerning symptoms return to ED - Post Discharge Activity
[2019-12-27 12:23] LABS: ALBUMIN 4.4 g/dl (3.4-5.0); BILIRUBIN,TOTAL 0.8 mg/dL (0.2-1); BLOOD UREA NITROGEN 12.4 mg/dL (7-18); CALCIUM 9.4 mg/dL (8.5-10.1); CREATININE 0.8 mg/dL (0.55-1.3); POTASSIUM 4.6 mmol/L (3.5-5.1); TOT PROT 7.8 g/dl (6.4-8.2)
[2019-12-27] MEDS ORDERED: KETOROLAC TROMETHAMINE 30 MG/1 ML VIAL IVPUSH ONE (13:12)
[2019-12-27] MEDS ORDERED: KETOROLAC TROMETHAMINE 30 MG/1 ML VIAL ONE (13:18)
[2019-12-27 14:29] VITALS: BP 116/73; PULSE 72; TEMP 98.3
--- NOTE | 2019-12-28 11:05 | EKG ---
Test Reason : Blood Pressure : / mmHG Vent. Rate : 075 BPM Atrial Rate : 075 BPM P-R Int : 128 ms QRS Dur : 082 ms QT Int : 386 ms P-R-T Axes : 004 041 034 degrees QTc Int : 431 ms NORMAL SINUS RHYTHM NORMAL ECG NO PREVIOUS ECGS AVAILABLE Confirmed by SHARON NIELSEN MD ([id number]) on 12/28/2019 11:05:36 AM Referred By: Confirmed By:SHARON NIELSEN MD
== END 2019-12-27 14:29 | disposition home or self-care (01) ==
LOC: JER 10:40
PROC: 3E0333Z Introduction of Anti-inflammatory into Peripheral Vein, Percutaneous Approach (ICD-10-PCS; principal; 2019-12-27)
DX: R10.13 Epigastric pain (principal)
CPT/HCPCS: 36415; 71046-TC-FY; 76705-TC; 80053; 81003; 83690; 84703; 85025; 87086; 93005; 93010; 99285-25

== ENCOUNTER 2021-10-13 15:31 | Emergency (ER) | payer OTHER ==
[2021-10-13 15:42] VITALS: BP 116/73; PULSE 73; TEMP 97; BMI 28.3
[2021-10-13 17:05] LABS: PH,URINE 8.5 (5.0-8.0); URINE APPEARANCE CLEAR; URINE BILIRUBIN NEGATIVE (NEGATIVE); URINE COLOR YELLOW; URINE GLUCOSE (UA) NEGATIVE (NEGATIVE); URINE KETONE NEGATIVE (NEGATIVE); URINE LEUK ESTERASE NEGATIVE (NEGATIVE); URINE NITRITE NEGATIVE (NEGATIVE); URINE PROTEIN NEGATIVE (NEGATIVE)
[2021-10-13 17:07] LABS: HCG,QUALITATIVE URINE Positive
== END 2021-10-13 18:43 | disposition home or self-care (01) ==
LOC: JER 15:31
DX: O26.851 Spotting complicating pregnancy, first trimester (principal); Z3A.01 Less than 8 weeks gestation of pregnancy
CPT/HCPCS: 36415; 81003; 84702; 84703; 99283-25

== ENCOUNTER 2021-10-23 18:43 | Emergency (ER) | payer OTHER ==
[2021-10-23 18:55] VITALS: BP 124/67; PULSE 102; TEMP 98.7; BMI 28.3
[2021-10-23 21:51] LABS: HEMATOCRIT 39.9 % (32.4-45.2); HEMOGLOBIN 13.1 GM/dL (10.7-15.3); MCH 27.6 pg (25.7-33.7); MCHC 32.7 g/dl (32.0-36.0); MEAN CELL VOLUME 84.3 fl (80-96); MEAN PLT VOLUME 9.3 fl (7.5-11.1); PLATELET COUNT 249 10^3/uL (134-434); RBC 4.74 M/mm3 (3.60-5.2); RDW 13.6 % (11.6-15.6); WHITE BLOOD COUNT 8.9 K/mm3 (4.0-10.0)
[2021-10-23 22:12] LABS: CALCIUM 8.9 mg/dL (8.5-10.1)
[2021-10-23 22:13] LABS: ALBUMIN 4.1 g/dl (3.4-5.0); BLOOD UREA NITROGEN 12.6 mg/dL (7-18)
[2021-10-23 22:16] LABS: CREATININE 0.7 mg/dL (0.55-1.3)
[2021-10-23 22:18] LABS: BILIRUBIN,TOTAL 0.4 mg/dL (0.2-1); TOT PROT 7.2 g/dl (6.4-8.2)
== END 2021-10-23 23:41 | disposition home or self-care (01) ==
LOC: JER 18:43
DX: O26.851 Spotting complicating pregnancy, first trimester (principal); Z3A.01 Less than 8 weeks gestation of pregnancy
CPT/HCPCS: 36415; 76817-TC; 80053; 84702; 85027; 86850; 86900; 86901; 99284-25